=== PATIENT | male | born 1955 | race Hispanic/Latino ===

== ENCOUNTER → 2021-04-02 | Outpatient (CLI) | payer OTHER ==
--- NOTE | 2021-04-02 14:00 | DIREP ---
PROCEDURE:XRAY SHOULDER MIN 2 VWS-RT COMPARISON:None. INDICATIONS:HISTORY AND PHYSICAL EVALUATION FINDINGS: BONES:No fracture or dislocation is seen. JOINTS:Mild degenerative arthropathy of the acromioclavicular joint is noted. The glenohumeral joint appears normal. SOFT TISSUES:Normal. OTHER:Moderate spondylosis of the mid and lower thoracic spine is demonstrated. CONCLUSION: 1. Moderate degenerative arthropathy of the acromioclavicular joint is noted. Dictated by: Zack Hodge M.D. on 04/02/2021 at 01:58 PM
== END | disposition home or self-care (01) ==
LOC: RAD 09:24
PROVIDERS: ATTEND Nurse Practitioner
DX: Z00.00 Encounter for general adult medical examination without abnormal findings (principal); M19.011 Primary osteoarthritis, right shoulder; M47.814 Spondylosis without myelopathy or radiculopathy, thoracic region
CPT/HCPCS: 73030-RT